=== PATIENT | female | born 1935 | race Caucasian/White ===

== ENCOUNTER → 2016-10-20 | Outpatient (CLI) | payer BC ==
[~2016-10-20] MED LIST: ACET-1257 PO; ALBUAER19 INH; AMOX400S2 PO; AMOX875T PO; ASCO1CAP3 PO; CALC500C3 PO; CALCTAB5 PO; CHOL1000 PO; CMD25 PO; CMD5 PO; LPR25 PO; MULT-506 PO; TRIA0.022 TOP; ZNTT/150 PO
[2016-10-20 13:38] LABS: BASO % 0.3 %; BASO ABS # 0.02 K/uL (0-0.2); COMPLETE YES; EOS % 1.4 %; HEMATOCRIT 37.9 % (37-47); IG% 0.2 %; LYMPH % 31.8 %; LYMPH ABS # 1.98 K/uL (1.2-3.4); MEAN CELL VOLUME 95.5 fL (80-100); MEAN CORPUSCULAR HEMOGLOBIN 31.2 pg (25-34); MEAN CORPUSCULAR HGB CONC 32.7 g/dl (32-36); MEAN PLATELET VOLUME 10.4 fL (7.4-10.4); MONO % 7.4 %; NEUT % 58.9 %; PLATELET COUNT 317 K/uL (130-400); RED BLOOD COUNT 3.97 M/uL (4.2-5.4); WHITE BLOOD COUNT 6.22 K/uL (4.8-10.8)
[2016-10-20 13:45] LABS: URINE APPEARANCE CLEAR (CLEAR); URINE BILIRUBIN NEG (NEG); URINE COLOR YELLOW; URINE NITRITE NEG (NEG); URINE PH 7.5 (4.5-7.5); URINE SPECIFIC GRAVITY 1.014 (1.000-1.030); UROBILINOGEN NEG (NEG)
[2016-10-20 13:51] LABS: MANUAL MICROSCOPIC REQUIRED? NO; REVIEW REQ? NO
== END | disposition home or self-care (01) ==
LOC: C.LABBC 10:57
PROVIDERS: ATTEND Family Medicine
DX: R10.819 Abdominal tenderness, unspecified site (principal)

== ENCOUNTER 2017-01-21 10:06 | Inpatient (IN) | payer BC, OTHER ==
[~2017-01-21] VITALS: Ht 162.6 cm; Wt 53.0 kg
[~2017-01-21 10:06] MED LIST changes: -AMOX400S2 PO; -AMOX875T PO; -CALC500C3 PO; -ZNTT/150 PO
[2017-01-21] MEDS ORDERED: SODIUM CHLORIDE 0.9% 1000ML 500 ML IV STA (10:25)
[2017-01-21] MEDS ORDERED: LOPERAMIDE HCL 2 MG CAP PO STA (10:25)
[2017-01-21] MEDS ORDERED: SODIUM CHLORIDE 0.9% 1000ML 1,000 ML IV STA (10:25)
[2017-01-21] MEDS ORDERED: ONDANSETRON INJ 2 MG/ML 2 ML VIAL IV STA (10:25)
[2017-01-21] MEDS ORDERED: CMD5 PO (10:35)
[2017-01-21] MEDS ORDERED: CMD25 PO (10:35)
[2017-01-21] MEDS ORDERED: CALC500C3 PO (10:36)
[2017-01-21] MEDS ORDERED: OPTIRAY 320 IV PRN (10:45)
[2017-01-21 10:59] LABS: BASO % 0.2 %; BASO ABS # 0.01 K/uL (0-0.2); COMPLETE YES; EOS % 0.6 %; HEMATOCRIT 42.1 % (37-47); IG% 0.2 %; LYMPH ABS # 0.91 K/uL (1.2-3.4); MEAN CORPUSCULAR HEMOGLOBIN 31.5 pg (25-34); MEAN CORPUSCULAR HGB CONC 33.5 g/dl (32-36); PLATELET COUNT 311 K/uL (130-400); RED BLOOD COUNT 4.48 M/uL (4.2-5.4); WHITE BLOOD COUNT 6.49 K/uL (4.8-10.8)
--- NOTE | 2017-01-21 11:06 | EMERGENCY ROOM VISIT NOTE ---
History Report prepared by Lawrence: Jason Watson Under the Supervision of: Dr. Marco Antonio Granado M.D. First contact with patient: 10:19 Chief Complaint: ABDOMINAL PAIN Stated Complaint: ABDOMINAL PAIN,NAUSEA,VOMITING,DIARRHEA History of Present Illness The patient is a 81 year old female who presents to the Emergency Room with complaints of constant abdominal pain beginning 1 week ago. She states that her pain began with intermittent cramps, but has become constant. She also complains of vomiting. The patient's most recent vomiting occurred last week. She also notes that she had some "watery" diarrhea this week as well. She denies any fevers, urinary symptoms, or bloody stool. The patient notes that she was seen by her PCP for her symptoms 1 week ago and was told that she likely had a stomach bug. She notes that her currently has similar symptoms. She denies feeling dehydrated. She is on Coumadin due to a history of DVT. Source of History: patient Onset: 1 week ago Position: abdomen Quality: cramping Timing: constant Associated Symptoms: + vomiting, + diarrhea, No fevers, No hematochezia, No urinary symptoms Review of Systems See HPI for pertinent positives & negatives. A total of 10 systems reviewed and were otherwise negative. Past Medical & Surgical Medical Problems: (1) DVT (deep venous thrombosis) (2) Hip fracture, left (3) HTN (hypertension) (4) Stress-induced cardiomyopathy Surgical Problems: (1) History of appendectomy (2) History of cataract surgery Family History No pertinent family history stated. Social History Smoking Status: Never Smoker Marital Status: Occupation Status: retired Current/Historical Medications Scheduled Ascorbic Acid (Vitamin C), 500 MG PO QAM Calcium (Caltrate), 600 MG PO BID Calcium Carbonate (Tums), 500 MG PO DIRECTED Cholecalciferol (Vitamin D3), 1 TAB PO QAM Metoprolol Tartrate (Lopressor), 25 MG PO BID Multivitamin (Multivitamin), 1 TAB PO QAM Ranitidine (Zantac), 150 MG PO BID Triamcinolone Acetonide (Topic (Triamcinolone Acet 0.025%), 1 DOSE TOP PRN Warfarin Sod (Coumadin), 2.5 MG PO 5XWK Warfarin Sod (Coumadin), 5 MG PO 2XWK Allergies Coded Allergies: Sulfa Antibiotics (Verified Allergy, Intermediate, HIVES, RASH, 01/21/17) Adhesives (Unverified Allergy, Unknown, REDNESS SKIN WITH TAPE, 01/21/17) Latex (Unverified Allergy, Unknown, PRURITUS, 01/21/17) PER RECORDS Aspirin (Verified Adverse Reaction, Mild, NAUSEA, 01/21/17) Codeine (Verified Adverse Reaction, Mild, NAUSEA, 01/21/17) Ibuprofen (Verified Adverse Reaction, Mild, NAUSEA, 01/21/17) Oxycodone (Verified Adverse Reaction, Mild, NAUSEA, 01/21/17) Morphine and Related (Unverified Adverse Reaction, Unknown, NAUSEA, 01/21/17 ) PER RECORDS Physical Exam Vital Signs Date Time Temp Pulse Resp B/P (MAP) Pulse Ox O2 Delivery O2 Flow Rate FiO2 01/21/17 17:18 82 20 154/72 98 Room Air 01/21/17 15:36 90 20 157/88 91 Room Air 01/21/17 14:18 76 20 161/79 100 Room Air 01/21/17 13:24 84 20 156/82 93 Room Air 01/21/17 13:04 85 01/21/17 12:32 86 16 160/78 96 Room Air 01/21/17 11:14 78 16 163/80 98 Room Air 01/21/17 10:23 88 01/21/17 10:17 36.7 92 16 190/100 96 Room Air Physical Exam GENERAL: Patient is in no acute distress. HEENT: No acute trauma, normocephalic atraumatic, mucous membranes moist, no nasal congestion, no scleral icterus. NECK: No stridor, no adenopathy, no meningismus, trachea is midline. LUNGS: Clear to auscultation bilaterally, no wheeze, no rhonchi, breath sounds equal. HEART: Without murmurs gallops or rubs, regular rate and rhythm. ABDOMEN: Soft, mildly diffusely tender, bowel sounds positive, no hernias, no peritonitis. EXTREMITIES: No cyanosis or edema, full range of motion of all the joints without pain or difficulty, no signs for acute trauma. NEUROLOGIC: Oriented x 3, no acute motor or sensory deficits, no focal weakness. SKIN: No rash, no jaundice, no diaphoresis. Medical Decision & Procedures ER Provider Diagnostic Interpretation: CT results as stated below per my review and radiologist interpretation: ABDOMEN AND PELVIS CT WITH IV CONTRAST FINDINGS: Minimal nonspecific interstitial change medial aspect right base. Lung bases otherwise are clear. Several hepatic cysts which have been described previously. Liver otherwise appears uniform. Small hiatal hernia. Spleen is unremarkable. Pancreas shows mild fatty replacement. The kidneys enhance uniformly. 5 mm nonobstructing lower pole right renal calcification. No evidence renal hydronephrosis. There are several loops of small bowel which are somewhat distended and fluid-filled. No evidence for an obstructing lesion is identified. Appearance suggests a nonspecific enteritis or small bowel inflammatory process. There is no evidence for abscess or collection. Bladder is midline. Findings of chronic sigmoid diverticulosis. At the mid to lower sigmoid components are findings suggesting a mild superimposed acute diverticulitis type component. There is again no evidence for abscess or collection. There is moderate pericolonic infiltrative change of the lower sigmoid components. There are several shotty nodes involving the mesentery as well as retroperitoneum. Bulky adenopathy is not appreciated. These presumably are reactive. IMPRESSION: 1. Mild acute sigmoid diverticulitis superimposed upon chronic diverticular change. 2. Reactive ileus versus nonspecific enteritis with a secondary small bowel ileus. 3. Multiple hepatic cysts. 5. Nonobstructing right renal calcification. 6. Minimal interstitial change right base. Electronically signed by: Dave Schultz M.D. Laboratory Results 01/21/17 10:42 Red Blood Count 4.48, Mean Corpuscular Volume 94.0, Mean Corpuscular Hemoglobin 31.5, Mean Corpuscular Hemoglobin Concent 33.5, Mean Platelet Volume 10.0, Neutrophils (%) (Auto) 77.0, Lymphocytes (%) (Auto) 14.0, Monocytes (%) (Auto) 8.0, Eosinophils (%) (Auto) 0.6, Basophils (%) (Auto) 0.2, Neutrophils # (Auto) 5.00, Lymphocytes # (Auto) 0.91, Monocytes # (Auto) 0.52, Eosinophils # (Auto) 0.04, Basophils # (Auto) 0.01 01/21/17 10:42 Test 01/21/17 00:00 01/21/17 10:42 Urine Color YELLOW Urine Appearance CLEAR (CLEAR) Urine pH 5.0 (4.5-7.5) Urine Specific [place] 1.023 (1.000-1.030) Urine Protein NEG (NEG) Urine Glucose (UA) NEG (NEG) Urine Ketones 2+ (NEG) Urine Occult Blood TRACE (NEG) Urine Nitrite NEG (NEG) Urine Bilirubin NEG (NEG) Urine Urobilinogen NEG (NEG) Urine Leukocyte Esterase NEG (NEG) Urine WBC (Auto) 1-5 /hpf (0-5) Urine RBC (Auto) 0-4 /hpf (0-4) Urine Hyaline Casts (Auto) 1-5 /lpf (0-5) Urine Epithelial Cells (Auto) 10-20 /lpf (0-5) Urine Bacteria (Auto) NEG (NEG) White Blood Count 6.49 K/uL (4.8-10.8) Red Blood Count 4.48 M/uL (4.2-5.4) Hemoglobin 14.1 g/dL (12.0-16.0) Hematocrit 42.1 % (37-47) Mean Corpuscular Volume 94.0 fL (80-100) Mean Corpuscular Hemoglobin 31.5 pg (25-34) Mean Corpuscular Hemoglobin Concent 33.5 g/dl (32-36) Platelet Count 311 K/uL (130-400) Mean Platelet Volume 10.0 fL (7.4-10.4) Neutrophils (%) (Auto) 77.0 % Lymphocytes (%) (Auto) 14.0 % Monocytes (%) (Auto) 8.0 % Eosinophils (%) (Auto) 0.6 % Basophils (%) (Auto) 0.2 % Neutrophils # (Auto) 5.00 K/uL (1.4-6.5) Lymphocytes # (Auto) 0.91 K/uL (1.2-3.4) Monocytes # (Auto) 0.52 K/uL (0.11-0.59) Eosinophils # (Auto) 0.04 K/uL (0-0.5) Basophils # (Auto) 0.01 K/uL (0-0.2) RDW Standard Deviation 46.5 fL (36.4-46.3) RDW Coefficient of Variation 13.5 % (11.5-14.5) Immature Granulocyte % (Auto) 0.2 % Immature Granulocyte # (Auto) 0.01 K/uL (0.00-0.02) Prothrombin Time 49.5 SECONDS (9.0-12.0) Prothromb Time International Ratio 4.4 (0.9-1.1) Activated Partial Thromboplast Time 45.0 SECONDS (21.0-31.0) Partial Thromboplastin Ratio 1.7 Anion Gap 7.0 mmol/L (3-11) Est Creatinine Clear Calc Drug Dose 56.6 ml/min Estimated GFR () 96.1 Estimated GFR (Non- 82.9 BUN/Creatinine Ratio 26.8 (10-20) Lactic Acid Level 1.1 mmol/L (0.4-2.0) Calcium Level 8.8 mg/dl (8.5-10.1) Magnesium Level 1.8 mg/dl (1.8-2.4) Total Bilirubin 0.8 mg/dl (0.2-1) Aspartate Amino Transf (AST/SGOT) 25 U/L (15-37) Alanine Aminotransferase (ALT/SGPT) 36 U/L (12-78) Alkaline Phosphatase 56 U/L (45-117) Total Protein 6.6 gm/dl (6.4-8.2) Albumin 3.3 gm/dl (3.4-5.0) Globulin 3.3 gm/dl (2.5-4.0) Albumin/Globulin Ratio 1.0 (0.9-2) Lipase 141 U/L (73-393) Laboratory results reviewed by me. Medications Administered Medications (Trade) Dose Ordered Sig/Shailesh Route Start Time Stop Time Status Last Admin Dose Admin Sodium Chloride 500 ml @ 999 mls/hr Q31M STAT IV 01/21/17 10:25 01/21/17 10:55 DC 01/21/17 10:25 999 MLS/HR Ondansetron HCl (Zofran Inj) 4 mg NOW STAT IV 01/21/17 10:25 01/21/17 10:28 DC 01/21/17 11:00 4 MG Sodium Chloride 1,000 ml @ 125 mls/hr Q8H STAT IV 01/21/17 10:25 01/21/17 18:24 01/21/17 10:25 125 MLS/HR Loperamide HCl (Imodium Cap) 2 mg NOW STAT PO 01/21/17 10:25 01/21/17 10:28 DC 01/21/17 11:00 2 MG Amoxicillin/ Clavulanate Potassium (Augmentin Tab) 875 mg ONE ONCE PO 01/21/17 13:15 01/21/17 13:17 DC 01/21/17 13:23 875 MG Ondansetron HCl (Zofran Odt) 4 mg STK-MED ONCE .ROUTE 01/21/17 14:27 01/21/17 14:28 DC 01/21/17 14:33 4 MG Ciprofloxacin/ Dextrose (Cipro / D5W) 400 mg NOW STAT IV 01/21/17 15:23 01/21/17 15:25 DC 01/21/17 16:33 400 MG Metronidazole (Flagyl / Nss) 500 mg NOW STAT IV 01/21/17 15:23 01/21/17 15:25 DC 01/21/17 15:36 500 MG Prochlorperazine Edisylate 5 mg/ Syringe 5 ml @ 5 mls/min NOW STAT IV 01/21/17 16:02 01/21/17 16:06 DC 01/21/17 16:02 5 MLS/MIN ED Course 1020: The patient was evaluated in room C4B. A complete history and physical exam was performed. 1025: Ordered Imodium Cap 2 mg PO, Sodium Chloride 1000 ml @ 125 mls/hr IV, Zofran Inj 4 mg IV, Sodium Chloride 500 ml @ 999 mls/hr IV. 1308: I reassessed the patient. She is feeling better. 1315: Ordered Augmentin Tab 875 mg PO. 1405: Reevaluated the patient. She feels very nauseous. 1427: Ordered Zofran Odt 4 mg PO. 1520: Upon reexamination the patient is resting comfortably. She still feels very nauseous. I discussed results and treatment plan with the patient. She verbalizes agreement and understanding. The patient will be evaluated for further management. 1523: Ordered Flagyl/NSS 500 mg IV, Cipro/D5w 400 mg IV. Medical Decision The patient is a 81 year old female who presents to the ED with complaints of abdominal pain. Differential diagnoses considered include but are not limited to; diverticulitis/colitis, dehydration, electrolyte imbalance, viral illness, foodborne illness, pancreatitis, UTI, and bacterial intestinal infection. Blood Pressure Screening: Patient was found to have an elevated blood pressure and was referred to their primary doctor for recheck and further treatment. Medication Reconciliation: I attest that I have personally reviewed the patient' s current medication list. There is no leukocytosis or concerning anemia. No significant electrolyte abnormality, kidney failure, hepatitis or pancreatitis. Lactic acid level is not elevated making bowel ischemia less likely. The patient has not been able to provide a stool sample for testing. Urinalysis does not show infection. Abdominal and pelvis CT does show diverticulitis, no abscess. The patient received IV saline, oral Augmentin, IV Zofran and oral Imodium. She was doing well. The plan was for discharge home on oral Augmentin. The patient began to feel nauseated, she required oral Zofran, this did not help , she could not tolerate oral intake. With her findings, with the nausea and reported vomiting, I did not think she would do well with discharge, she is being brought into the hospital for IV antibiotic therapy. She was given a dose of IV Cipro and IV Flagyl here in the emergency room. I did speak to the patient and to case management. The on-call hospitalist was consulted. Consults Time Called: 1525 Consulting Physician: Sybil Castorena Returned Call: [phone] Discussed the patient's case. The patient will be evaluated for further management. Impression Primary Impression: Diverticulitis Additional Impressions: Vomiting Diarrhea Scribe Attestation The scribe's documentation has been prepared under my direction and personally reviewed by me in its entirety. I confirm that the note above accurately reflects all work, treatment, procedures, and medical decision making performed by me. Departure Information Dispostion Being Evaluated By Hospitalist Referrals Moustapha Hummel D.O. (PCP) Forms HOME CARE DOCUMENTATION FORM, IMPORTANT VISIT INFORMATION Patient Instructions My [facility] Problem Qualifiers
[2017-01-21 11:15] LABS: PARTIAL THROMBOPLASTIN RATIO 1.7; PROTHROMBIN TIME (PATIENT) 49.5 SECONDS (9.0-12.0)
[2017-01-21 11:18] LABS: BUN/CREATININE RATIO 26.8 (10-20); CALCIUM 8.8 mg/dl (8.5-10.1); CREATININE 0.63 mg/dl (0.60-1.20); INR 4.4 (0.9-1.1); POTASSIUM 3.7 mmol/L (3.5-5.1)
--- NOTE | 2017-01-21 12:41 | DIAGNOSTIC IMAGING REPORT ---
ABDOMEN AND PELVIS CT WITH IV CONTRAST CT DOSE: 492.84 mGycm HISTORY: Pain ABD PAIN, posse dive tic or colitis, IV CONTRAST ONLY TECHNIQUE: Multiaxial CT images of the abdomen and pelvis were performed following the use of intravenous contrast. COMPARISON STUDY: 11/01/2009 FINDINGS: Minimal nonspecific interstitial change medial aspect right base. Lung bases otherwise are clear. Several hepatic cysts which have been described previously. Liver otherwise appears uniform. Small hiatal hernia. Spleen is unremarkable. Pancreas shows mild fatty replacement. The kidneys enhance uniformly. 5 mm nonobstructing lower pole right renal calcification. No evidence renal hydronephrosis. There are several loops of small bowel which are somewhat distended and fluid-filled. No evidence for an obstructing lesion is identified. Appearance suggests a nonspecific enteritis or small bowel inflammatory process. There is no evidence for abscess or collection. Bladder is midline. Findings of chronic sigmoid diverticulosis. At the mid to lower sigmoid components are findings suggesting a mild superimposed acute diverticulitis type component. There is again no evidence for abscess or collection. There is moderate pericolonic infiltrative change of the lower sigmoid components. There are several shotty nodes involving the mesentery as well as retroperitoneum. Bulky adenopathy is not appreciated. These presumably are reactive. IMPRESSION: 1. Mild acute sigmoid diverticulitis superimposed upon chronic diverticular change. 2. Reactive ileus versus nonspecific enteritis with a secondary small bowel ileus. 3. Multiple hepatic cysts. 5. Nonobstructing right renal calcification. 6. Minimal interstitial change right base. Electronically signed by: Dave Schultz M.D. 01/21/2017 12:40 PM Dictated Date/Time: 01/21/2017 12:33 PM
[2017-01-21 12:57] LABS: URINE APPEARANCE CLEAR (CLEAR); URINE BILIRUBIN NEG (NEG); URINE COLOR YELLOW; URINE NITRITE NEG (NEG); URINE SPECIFIC GRAVITY 1.023 (1.000-1.030); UROBILINOGEN NEG (NEG); ZZUR CULT IF INDIC CLEAN CATCH NO
[2017-01-21 12:59] LABS: MANUAL MICROSCOPIC REQUIRED? NO; REVIEW REQ? NO
[2017-01-21] MEDS ORDERED: AMOXICILLIN/CLAVULANATE TAB 875 MG TAB PO ONE (13:15)
[2017-01-21] MEDS ORDERED: AMOX875T PO (14:12)
[2017-01-21] MEDS ORDERED: ONDANSETRON 4MG OD TAB ONE ×2 (14:27→14:31)
[2017-01-21] MEDS ORDERED: METRONIDAZOLE 500MG / 100ML NSS IV STA (15:23)
[2017-01-21] MEDS ORDERED: CIPROFLOXACIN 400MG / 200ML D5W IV STA (15:23)
[2017-01-21] MEDS ORDERED: PROMETHAZINE HCL INJ 12.5 MG in SODIUM CHLORIDE 0.9% 50ML 50 ML IV PRN (16:00)
[2017-01-21] MEDS ORDERED: PROCHLORPERAZINE INJ 5 MG in SYRINGE 4 ML IV STA (16:02)
[2017-01-21] MEDS ORDERED: PROCHLORPERAZINE 5 MG/ML 2 ML VIAL ONE (16:02)
[2017-01-21] MEDS ORDERED: ACETAMINOPHEN 325 MG TAB PO PRN (16:15)
[2017-01-21] MEDS ORDERED: ONDANSETRON INJ 2 MG/ML 2 ML VIAL IV PRN (16:15)
[2017-01-21] MEDS ORDERED: ZNTT/150 PO (16:16)
[2017-01-21 17:09] LABS: MAGNESIUM 1.8 mg/dl (1.8-2.4)
--- NOTE | 2017-01-21 17:17 | History and Physical ---
History & Physical Date & Time of Service: Jan 21, 2017 ~ 16:00 Chief Complaint: Abdominal Pain,Nausea,Vomiting,Diarrhea Primary Care Physician: Moustapha Hummel D.OTalya History of Present Illness 81 year old female who presents to the ER with abdominal pain, nausea, vomiting , and diarrhea. Patient reports she has been sick for the past 10 days. She reports abdominal pain was initially in the epigastric region and then became more generalized. She reports multiple episodes of vomiting and diarrhea. She denies hematemesis, coffee ground emesis, BRBPR, or dark tarry stools. She denies fever and chills. No lightheadedness, dizziness, diaphoresis, or syncopal events. She denies chest pain and shortness of breath. No urinary symptoms. In the ER, patient is having poor PO tolerance. She had a few episodes of vomiting during my exam. Emesis was bilious in nature with some undigested food. CT abd/eplvis is showing mild acute sigmoid diverticulitis. She was given Augmentin however had vomiting after. She was then given IV Cipro and Flagyl. She was also treated with IVF, Imodium, and Zofran. Vitals are stable. Past Medical/Surgical History Medical Problems: (1) DVT (deep venous thrombosis) Status: Chronic (2) Hip fracture, left Permanent Comment: s/p repair Status: Chronic (3) HTN (hypertension) Status: Chronic (4) Stress-induced cardiomyopathy Status: Chronic Surgical Problems: (1) History of appendectomy Status: Chronic (2) History of cataract surgery Status: Chronic Family History non contributory due to patient's advanced age Social History Smoking Status: Never Smoker Alcohol Use: none Marital Status: Immunizations History of Influenza Vaccine: Yes Influenza Vaccine Date: May 31, 2016 History of Tetanus Vaccine?: Yes Tetanus Immunization Date: Oct 18, 2012 History of Pneumococcal: Yes Pneumococcal Date: Apr 28, 2015 Multi-Drug Resistant Organisms History of MDRO: No Allergies Coded Allergies: Sulfa Antibiotics (Verified Allergy, Intermediate, HIVES, RASH, 01/21/17) Adhesives (Unverified Allergy, Unknown, REDNESS SKIN WITH TAPE, 01/21/17) Latex (Unverified Allergy, Unknown, PRURITUS, 01/21/17) PER RECORDS Aspirin (Verified Adverse Reaction, Mild, NAUSEA, 01/21/17) Codeine (Verified Adverse Reaction, Mild, NAUSEA, 01/21/17) Ibuprofen (Verified Adverse Reaction, Mild, NAUSEA, 01/21/17) Oxycodone (Verified Adverse Reaction, Mild, NAUSEA, 01/21/17) Morphine and Related (Unverified Adverse Reaction, Unknown, NAUSEA, 01/21/17 ) PER RECORDS Home Medications Scheduled Ascorbic Acid (Vitamin C), 500 MG PO QAM Calcium (Caltrate), 600 MG PO BID Calcium Carbonate (Tums), 500 MG PO DIRECTED Cholecalciferol (Vitamin D3), 1 TAB PO QAM Metoprolol Tartrate (Lopressor), 25 MG PO BID Multivitamin (Multivitamin), 1 TAB PO QAM Ranitidine (Zantac), 150 MG PO BID Triamcinolone Acetonide (Topic (Triamcinolone Acet 0.025%), 1 DOSE TOP PRN Warfarin Sod (Coumadin), 2.5 MG PO 5XWK Warfarin Sod (Coumadin), 5 MG PO 2XWK Review of Systems ROS per HPI, all other systems reviewed and negative Physical Exam Vital Signs Date Time Temp Pulse Resp B/P (MAP) Pulse Ox O2 Delivery O2 Flow Rate FiO2 01/21/17 15:36 90 20 157/88 91 Room Air 01/21/17 14:18 76 20 161/79 100 Room Air 01/21/17 13:24 84 20 156/82 93 Room Air 01/21/17 13:04 85 01/21/17 12:32 86 16 160/78 96 Room Air 01/21/17 11:14 78 16 163/80 98 Room Air 01/21/17 10:23 88 01/21/17 10:17 36.7 92 16 190/100 96 Room Air General Appearance: + mild distress (vomiting during exam) Head: normocephalic Eyes: normal inspection ENT: hearing grossly normal Neck: supple, no JVD Respiratory/Chest: lungs clear, normal breath sounds, no respiratory distress Cardiovascular: regular rate, rhythm, no edema, normal peripheral pulses Abdomen/GI: normal bowel sounds, soft, + tenderness (generalized, more pronounced in epigastric area) Extremities/Musculoskelatal: normal inspection, no calf tenderness Neurologic/Psych: no motor/sensory deficits, alert, normal mood/affect, oriented x 3 Skin: normal color, warm/dry Diagnostics Laboratory Results Results Past 24 Hours Test 7/7/17 00:00 01/21/17 10:42 Range/Units Urine Color YELLOW Urine Appearance CLEAR CLEAR Urine pH 5.0 4.5-7.5 Urine Specific [place] 1.023 1.000-1.030 Urine Protein NEG NEG Urine Glucose (UA) NEG NEG Urine Ketones 2+ NEG Urine Occult Blood TRACE NEG Urine Nitrite NEG NEG Urine Bilirubin NEG NEG Urine Urobilinogen NEG NEG Urine Leukocyte Esterase NEG NEG Urine WBC (Auto) 1-5 0-5 /hpf Urine RBC (Auto) 0-4 0-4 /hpf Urine Hyaline Casts (Auto) 1-5 0-5 /lpf Urine Epithelial Cells (Auto) 10-20 0-5 /lpf Urine Bacteria (Auto) NEG NEG White Blood Count 6.49 4.8-10.8 K/uL Red Blood Count 4.48 4.2-5.4 M/uL Hemoglobin 14.1 12.0-16.0 g/dL Hematocrit 42.1 37-47 % Mean Corpuscular Volume 94.0 80-100 fL Mean Corpuscular Hemoglobin 31.5 25-34 pg Mean Corpuscular Hemoglobin Concent 33.5 32-36 g/dl Platelet Count 311 130-400 K/uL Mean Platelet Volume 10.0 7.4-10.4 fL Neutrophils (%) (Auto) 77.0 % Lymphocytes (%) (Auto) 14.0 % Monocytes (%) (Auto) 8.0 % Eosinophils (%) (Auto) 0.6 % Basophils (%) (Auto) 0.2 % Neutrophils # (Auto) 5.00 1.4-6.5 K/uL Lymphocytes # (Auto) 0.91 1.2-3.4 K/uL Monocytes # (Auto) 0.52 0.11-0.59 K/uL Eosinophils # (Auto) 0.04 0-0.5 K/uL Basophils # (Auto) 0.01 0-0.2 K/uL RDW Standard Deviation 46.5 36.4-46.3 fL RDW Coefficient of Variation 13.5 11.5-14.5 % Immature Granulocyte % (Auto) 0.2 % Immature Granulocyte # (Auto) 0.01 0.00-0.02 K/uL Prothrombin Time 49.5 9.0-12.0 SECONDS Prothromb Time International Ratio 4.4 0.9-1.1 Activated Partial Thromboplast Time 45.0 21.0-31.0 SECONDS Partial Thromboplastin Ratio 1.7 Sodium Level 144 136-145 mmol/L Potassium Level 3.7 3.5-5.1 mmol/L Chloride Level 109 98-107 mmol/L Carbon Dioxide Level 28 21-32 mmol/L Anion Gap 7.0 3-11 mmol/L Blood Urea Nitrogen 17 7-18 mg/dl Creatinine 0.63 0.60-1.20 mg/dl Est Creatinine Clear Calc Drug Dose 56.6 ml/min Estimated GFR () 96.1 Estimated GFR (Non- 82.9 BUN/Creatinine Ratio 26.8 10-20 Random Glucose 82 70-99 mg/dl Lactic Acid Level 1.1 0.4-2.0 mmol/L Calcium Level 8.8 8.5-10.1 mg/dl Total Bilirubin 0.8 0.2-1 mg/dl Aspartate Amino Transf (AST/SGOT) 25 15-37 U/L Alanine Aminotransferase (ALT/SGPT) 36 12-78 U/L Alkaline Phosphatase 56 45-117 U/L Total Protein 6.6 6.4-8.2 gm/dl Albumin 3.3 3.4-5.0 gm/dl Globulin 3.3 2.5-4.0 gm/dl Albumin/Globulin Ratio 1.0 0.9-2 Lipase 141 73-393 U/L Diagnostic Radiology CT ABD/PLEVIS IMPRESSION: 1. Mild acute sigmoid diverticulitis superimposed upon chronic diverticular change. 2. Reactive ileus versus nonspecific enteritis with a secondary small bowel ileus. 3. Multiple hepatic cysts. 5. Nonobstructing right renal calcification. 6. Minimal interstitial change right base. Impression Assessment and Plan ACUTE SIGMOID DIVERTICULITIS - admit to med/surg - patient presenting with abdominal pain, nausea, vomiting, and diarrhea x 10 days; in the ER, CT showing mild acute sigmoid diverticulitis - labs unremarkable, no signs of sepsis - poor PO tolerance in the ED - s/p Cipro and Flagyl, will continue with - supportive care with IVF, IV PPI, and antiemetics - stool studies - clear liquid diet - noted cscope 2009 - sigmoid diverticulosis HTN - BP slightly elevated - likely due to stress from vomiting - continue metoprolol, make adjustments as needed HX DVT - on Coumadin, INR 4.4 - no signs of bleeding - hold Coumadin tonight, check INR daily DVT PROPHYLAXIS - on Coumadin with INR > 2.0 CODE STATUS - Patient is a DNR as per my discussion with her. DISPO - In my clinical judgment this beneficiary meets acute admission criteria, established by [facility], that includes being hospitalized through two midnights. Attending Note: Patient is an 81 yr female comes for evaluation of abdominal pain, nausea, vomiting and an episode of diarrhea. Denies any bleeding issues. States having diverticulitis many years ago. CT abd is suggestive of acute sigmoid diverticulitis. PCP prescribed PO antibiotics which she could not tolerate secondary to nausea, vomiting. Physical Exam: Vitals signs as noted above General Appearance:Moderately built and nourished, no apparent distress Head: normocephalic, Atraumatic Eyes: normal inspection, EOMI, PERRL Neck: supple, Trachea midline Respiratory/Chest: Normal breath sounds, CTA Cardiovascular: S1, S2, No murmur Abdomen/GI:Soft, diffusely tender, Bowel sounds present Extremities/Musculoskelatal:normal inspection, no edema Neurologic/Psych:AAOX3, grossly no focal neurological deficits Skin:normal color,warm Assessment and Plan: Acute sigmoid diverticulitis: H/O appendectomy and previous episode of diverticulitis many years ago IV Fluids, IV antibiotics, Pain control Clear liquid diet Supra therapeutic INR No bleeding issues Hold coumadin I personally reviewed the record. Patient is interviewed and examined at bedside. Patient's care is coordinated with Sybil Elam WEB ARCHITECT. Please refer to the documentation above for details of patient's presentation and for discussion of other issues. VTE Prophylaxis VTE Risk Assessment Done? Y/N: Yes Risk Level: Moderate Given or contraindicated: Warfarin (Coumadin)
[2017-01-21 18:08] VITALS: BP 138/71; PULSE 94; TEMP 36.7; O2SAT 90; Ht 162.6 cm; Wt 53.0 kg
[2017-01-21] MEDS: D5W AND NSS 1,000 ML IV SCH (19:25)
[2017-01-21] MEDS: PANTOprazole INJ 40 MG in SYRINGE 0 ML IV SCH (19:29)
[2017-01-21] MEDS: CALCIUM 600MG + VIT D 400 IU TAB PO SCH (20:32)
[2017-01-21] MEDS: METOPROLOL TARTRATE 25 MG TAB PO SCH (20:32)
[2017-01-21] MEDS: METRONIDAZOLE / NSS 500 MG in PREMIXED NSS 100 ML IV SCH (23:48)
[2017-01-21 23:58] VITALS: BP 90/50; PULSE 64; TEMP 36.9; O2SAT 93
[2017-01-22] MEDS: D5W AND NSS 1,000 ML IV SCH ×3 (04:56→22:17)
[2017-01-22] MEDS: CIPROFLOXACIN / D5W 400 MG in PREMIXED IN D5W 200 ML IV SCH ×2 (04:56→18:14)
[2017-01-22 05:02] VITALS: BP 100/57; PULSE 66
[2017-01-22 06:47] LABS: HEMATOCRIT 35.8 % (37-47); MEAN CELL VOLUME 95.7 fL (80-100); MEAN CORPUSCULAR HEMOGLOBIN 31.3 pg (25-34); MEAN CORPUSCULAR HGB CONC 32.7 g/dl (32-36); PLATELET COUNT 261 K/uL (130-400); RED BLOOD COUNT 3.74 M/uL (4.2-5.4); WHITE BLOOD COUNT 4.32 K/uL (4.8-10.8)
[2017-01-22 07:09] VITALS: BP 109/65; PULSE 65; TEMP 36.9; O2SAT 93
[2017-01-22] MEDS ORDERED: PHYTONADIONE 5 MG TAB PO STA (07:42)
[2017-01-22] MEDS: METRONIDAZOLE / NSS 500 MG in PREMIXED NSS 100 ML IV SCH ×2 (07:53→15:52)
[2017-01-22] MEDS: PANTOprazole INJ 40 MG in SYRINGE 0 ML IV SCH ×2 (07:53→20:41)
[2017-01-22] MEDS: METOPROLOL TARTRATE 25 MG TAB PO SCH ×2 (07:53→20:42)
[2017-01-22] MEDS: ASCORBIC ACID 500 MG TAB PO SCH (07:53)
[2017-01-22] MEDS: MULTIVITAMIN TAB PO SCH (07:53)
[2017-01-22] MEDS: CHOLECALCIFEROL 1000 INTER.UNIT TAB PO SCH (07:53)
[2017-01-22] MEDS: CALCIUM 600MG + VIT D 400 IU TAB PO SCH ×2 (07:54→20:42)
[2017-01-22 08:09] LABS: BUN/CREATININE RATIO 14.7 (10-20); CALCIUM 7.6 mg/dl (8.5-10.1); CREATININE 0.72 mg/dl (0.60-1.20); POTASSIUM 3.5 mmol/L (3.5-5.1)
[2017-01-22 16:12] VITALS: BP 131/79; PULSE 65; TEMP 36.7; O2SAT 93
--- NOTE | 2017-01-22 18:26 | Progress Note ---
Medicine Progress Note Date & Time of Visit: Jan 22, 2017 at 18:22. Subjective Patient denies any new complaints; she has been tolerating clear liquids without difficulty and has not had any abdominal pain, nausea, or vomiting. She continues to have frequent watery diarrhea. Denies any bleeding. Objective Last 8 Hrs Date Time Temp Pulse Resp B/P (MAP) Pulse Ox O2 Delivery O2 Flow Rate FiO2 01/22/17 16:12 36.7 65 18 131/79 (96) 93 Room Air 01/22/17 16:00 Room Air Physical Exam: GENERAL: Patient is in no acute distress. HEENT: No acute trauma, normocephalic, mucous membranes moist, no nasal congestion, no scleral icterus. NECK: No stridor, trachea is midline. LUNGS: Clear to auscultation bilaterally, no wheeze, no rhonchi, breath sounds equal. HEART: Without murmurs gallops or rubs, regular rate and rhythm. ABDOMEN: Soft, nontender, bowel sounds positive EXTREMITIES: No cyanosis or edema NEUROLOGIC: Oriented x 3, no acute motor or sensory deficits, no focal weakness. SKIN: No rash, no jaundice, no diaphoresis. Laboratory Results: Last 24 Hours Test 01/22/17 06:07 White Blood Count 4.32 K/uL Red Blood Count 3.74 M/uL Hemoglobin 11.7 g/dL Hematocrit 35.8 % Mean Corpuscular Volume 95.7 fL Mean Corpuscular Hemoglobin 31.3 pg Mean Corpuscular Hemoglobin Concent 32.7 g/dl RDW Standard Deviation 49.0 fL RDW Coefficient of Variation 13.9 % Platelet Count 261 K/uL Mean Platelet Volume 10.0 fL Prothrombin Time 93.0 SECONDS Prothromb Time International Ratio 8.0 Sodium Level 147 mmol/L Potassium Level 3.5 mmol/L Chloride Level 115 mmol/L Carbon Dioxide Level 27 mmol/L Anion Gap 5.0 mmol/L Blood Urea Nitrogen 11 mg/dl Creatinine 0.72 mg/dl Est Creatinine Clear Calc Drug Dose 49.5 ml/min Estimated GFR () 89.8 Estimated GFR (Non- 77.4 BUN/Creatinine Ratio 14.7 Random Glucose 97 mg/dl Calcium Level 7.6 mg/dl Assessment & Plan ACUTE SIGMOID DIVERTICULITIS: -with prior episodes of diverticulitis -presented this time with abdominal pain, nausea, vomiting, and diarrhea x 10 days -CT abd/pelvis: mild acute sigmoid diverticulitis -no signs of sepsis -did not tolerate PO abx in the ED -on Cipro and Flagyl IV day #2 -continue with IV fluids, IV PPI, and antiemetics -stool culture pending, stool for c diff negative -on clear liquid diet -last colonoscopy in 2009 showed sigmoid diverticulosis -still with significant diarrhea -start lactobacillus HTN: -continue metoprolol, adjust as needed Prior DVT: -on Coumadin, INR 4.4--> 8 today despite holding coumadin yesterday -no signs of bleeding -continue to hold Coumadin -check INR daily -one dose oral vitamin K given DVT PROPHYLAXIS: -on Coumadin Current Inpatient Medications: Current Inpatient Medications Medications (Trade) Dose Ordered Sig/Shailesh Route Start Time Stop Time Status Last Admin Dose Admin Ioversol (Optiray 320) 111 ml UD PRN IV 01/21/17 10:45 01/25/17 10:44 Promethazine HCl 12.5 mg/Sodium Chloride 50.5 ml @ 204 mls/hr Q6H PRN IV 01/21/17 16:00 02/20/17 15:59 Acetaminophen (Tylenol Tab) 650 mg Q4H PRN PO 01/21/17 16:15 02/20/17 16:14 Ondansetron HCl (Zofran Inj) 4 mg Q6H PRN IV 01/21/17 16:15 02/20/17 16:14 Dextrose/Sodium Chloride 1,000 ml @ 100 mls/hr Q10H IV 01/21/17 16:15 02/20/17 16:14 01/22/17 18:13 100 MLS/HR Ciprofloxacin/ Dextrose 400 mg/ Prmx 200 ml @ 100 mls/hr Q12H IV 01/22/17 05:00 01/31/17 23:59 01/22/17 18:14 100 MLS/HR Metronidazole 500 mg/Prmx 100 ml @ 100 mls/hr Q8H IV 01/22/17 00:00 01/31/17 23:59 01/22/17 15:52 100 MLS/HR Pantoprazole Sodium 40 mg/ Syringe 10 ml @ 5 mls/min DAILY@ IV 01/21/17 19:00 02/20/17 18:59 01/22/17 07:53 5 MLS/MIN Cholecalciferol (Vitamin D Tab) 1,000 inter.unit QAM PO 01/22/17 09:00 02/21/17 08:59 01/22/17 07:53 1,000 INTER.UNIT Metoprolol Tartrate (Lopressor Tab) 25 mg BID PO 01/21/17 21:00 02/20/17 20:59 01/22/17 07:53 25 MG Multivitamins (Multivitamin Tab) 1 tab QAM PO 01/22/17 09:00 02/21/17 08:59 01/22/17 07:53 1 TAB Ascorbic Acid (Vitamin C Tab) 500 mg QAM PO 01/22/17 09:00 02/21/17 08:59 01/22/17 07:53 500 MG Calcium/Vitamin D (Caltrate Plus Tab) 1 tab BID PO 01/21/17 21:00 02/20/17 20:59 01/22/17 07:54 1 TAB
[2017-01-22 19:38] VITALS: BP 166/85; PULSE 78; TEMP 36.8; O2SAT 96
[2017-01-22] MEDS ORDERED: DiphenhydrAMINE INJ 50 MG in SYRINGE 0 ML IV ONE (20:30)
[2017-01-22 20:38] VITALS: BP 177/91; PULSE 81
[2017-01-22 22:39] VITALS: BP 173/80; PULSE 61; TEMP 36.8; O2SAT 92
[2017-01-23 01:50] VITALS: BP 147/73
[2017-01-23] MEDS: AMPICILLIN/SULBACTAM SOD INJ 1,500 MG in SODIUM CHLORIDE 0.9% 100ML 100 ML IV SCH ×4 (04:04→22:08)
[2017-01-23] MEDS: ASCORBIC ACID 500 MG TAB PO SCH (07:41)
[2017-01-23] MEDS: METOPROLOL TARTRATE 25 MG TAB PO SCH ×2 (07:41→20:54)
[2017-01-23] MEDS: MULTIVITAMIN TAB PO SCH (07:41)
[2017-01-23] MEDS: CHOLECALCIFEROL 1000 INTER.UNIT TAB PO SCH (07:41)
[2017-01-23] MEDS: CALCIUM 600MG + VIT D 400 IU TAB PO SCH ×2 (07:42→20:54)
[2017-01-23] MEDS: LACTOBACILLUS ACIDOPHILUS (FLORANEX) TAB PO SCH ×3 (07:42→16:34)
[2017-01-23] MEDS: PANTOprazole INJ 40 MG in SYRINGE 0 ML IV SCH ×2 (07:47→20:54)
[2017-01-23 08:00] VITALS: BP 144/64; PULSE 68; TEMP 37.1; O2SAT 95
[2017-01-23 08:57] LABS: HEMATOCRIT 36.4 % (37-47); MEAN CELL VOLUME 94.5 fL (80-100); MEAN CORPUSCULAR HEMOGLOBIN 31.7 pg (25-34); MEAN CORPUSCULAR HGB CONC 33.5 g/dl (32-36); MEAN PLATELET VOLUME 9.6 fL (7.4-10.4); PLATELET COUNT 275 K/uL (130-400); RED BLOOD COUNT 3.85 M/uL (4.2-5.4); WHITE BLOOD COUNT 6.61 K/uL (4.8-10.8)
[2017-01-23] MEDS: D5W AND NSS 1,000 ML IV SCH ×2 (09:00→18:24)
[2017-01-23 09:10] LABS: PROTHROMBIN TIME (PATIENT) 49.9 SECONDS (9.0-12.0)
[2017-01-23 09:13] LABS: INR 4.4 (0.9-1.1)
[2017-01-23 09:35] LABS: BUN/CREATININE RATIO 7.8 (10-20); CALCIUM 7.8 mg/dl (8.5-10.1); CREATININE 0.77 mg/dl (0.60-1.20); POTASSIUM 3.2 mmol/L (3.5-5.1)
[2017-01-23 10:01] VITALS: BP 159/80; PULSE 60; O2SAT 96
[2017-01-23 16:00] VITALS: BP 159/74; PULSE 61; TEMP 36.9; O2SAT 94
--- NOTE | 2017-01-23 18:59 | Progress Note ---
Medicine Progress Note Date & Time of Visit: Jan 23, 2017 at 18:59. 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 Today she feels much better and feels the diarrhea is less frequent. She would like her diet to be advanced. No other events noted. No other complaints. Denies any abdominal pain or N/V. Objective Last 8 Hrs Date Time Temp Pulse Resp B/P (MAP) Pulse Ox O2 Delivery O2 Flow Rate FiO2 01/23/17 16:00 Room Air 01/23/17 16:00 36.9 61 18 159/74 (102) 94 Room Air Physical Exam: GENERAL: Patient is in no acute distress. HEENT: No acute trauma, normocephalic, mucous membranes moist, no nasal congestion, no scleral icterus. NECK: No stridor, trachea is midline. LUNGS: Clear to auscultation bilaterally, no wheeze, no rhonchi, breath sounds equal. HEART: Without murmurs gallops or rubs, regular rate and rhythm. ABDOMEN: Soft, nontender, bowel sounds positive EXTREMITIES: No cyanosis or edema NEUROLOGIC: Oriented x 3, no acute motor or sensory deficits, no focal weakness. SKIN: No rash, no jaundice, no diaphoresis. Laboratory Results: Last 24 Hours Test 01/23/17 08:45 White Blood Count 6.61 K/uL Red Blood Count 3.85 M/uL Hemoglobin 12.2 g/dL Hematocrit 36.4 % Mean Corpuscular Volume 94.5 fL Mean Corpuscular Hemoglobin 31.7 pg Mean Corpuscular Hemoglobin Concent 33.5 g/dl RDW Standard Deviation 48.1 fL RDW Coefficient of Variation 13.9 % Platelet Count 275 K/uL Mean Platelet Volume 9.6 fL Prothrombin Time 49.9 SECONDS Prothromb Time International Ratio 4.4 Sodium Level 146 mmol/L Potassium Level 3.2 mmol/L Chloride Level 113 mmol/L Carbon Dioxide Level 27 mmol/L Anion Gap 6.0 mmol/L Blood Urea Nitrogen 6 mg/dl Creatinine 0.77 mg/dl Est Creatinine Clear Calc Drug Dose 46.3 ml/min Estimated GFR () 82.8 Estimated GFR (Non- 71.4 BUN/Creatinine Ratio 7.8 Random Glucose 93 mg/dl Calcium Level 7.8 mg/dl Assessment & Plan ACUTE SIGMOID DIVERTICULITIS: -with prior episodes of diverticulitis -presented this time with abdominal pain, nausea, vomiting, and diarrhea x 10 days -CT abd/pelvis: mild acute sigmoid diverticulitis -no signs of sepsis -did not tolerate PO abx in the ED -on Cipro and Flagyl IV for 2 days, switched to unasyn today due to events overnight -continue with IV fluids, IV PPI, and antiemetics; can d/c IV fluids, switch PPI to PO -stool culture pending, stool for c diff negative -on clear liquid diet-->advanced to full liquids -last colonoscopy in 2009 showed sigmoid diverticulosis -still with some diarrhea, no bleeding -started lactobacillus TIDM HTN: -continue metoprolol, adjust as needed Prior DVT: -on Coumadin, INR 4.4--> 8-->4.4 -no signs of bleeding -continue to hold Coumadin -check INR daily -one dose oral vitamin K given when INR was 8 DVT PROPHYLAXIS: -on Coumadin Current Inpatient Medications: Current Inpatient Medications Medications (Trade) Dose Ordered Sig/Shailesh Route Start Time Stop Time Status Last Admin Dose Admin Ioversol (Optiray 320) 111 ml UD PRN IV 01/21/17 10:45 01/25/17 10:44 Promethazine HCl 12.5 mg/Sodium Chloride 50.5 ml @ 204 mls/hr Q6H PRN IV 01/21/17 16:00 02/20/17 15:59 Acetaminophen (Tylenol Tab) 650 mg Q4H PRN PO 01/21/17 16:15 02/20/17 16:14 Ondansetron HCl (Zofran Inj) 4 mg Q6H PRN IV 01/21/17 16:15 02/20/17 16:14 Dextrose/Sodium Chloride 1,000 ml @ 100 mls/hr Q10H IV 01/21/17 16:15 02/20/17 16:14 01/23/17 18:24 100 MLS/HR Pantoprazole Sodium 40 mg/ Syringe 10 ml @ 5 mls/min DAILY@09,21 IV 01/21/17 19:00 02/20/17 18:59 01/23/17 07:47 5 MLS/MIN Cholecalciferol (Vitamin D Tab) 1,000 inter.unit QAM PO 01/22/17 09:00 02/21/17 08:59 01/23/17 07:41 1,000 INTER.UNIT Metoprolol Tartrate (Lopressor Tab) 25 mg BID PO 01/21/17 21:00 02/20/17 20:59 01/23/17 07:41 25 MG Multivitamins (Multivitamin Tab) 1 tab QAM PO 01/22/17 09:00 02/21/17 08:59 01/23/17 07:41 1 TAB Ascorbic Acid (Vitamin C Tab) 500 mg QAM PO 01/22/17 09:00 02/21/17 08:59 01/23/17 07:41 500 MG Calcium/Vitamin D (Caltrate Plus Tab) 1 tab BID PO 01/21/17 21:00 02/20/17 20:59 01/23/17 07:42 1 TAB Lactobacillus Acidophilus (Floranex Tab) 4 tab TIDM PO 01/23/17 08:00 02/22/17 07:59 01/23/17 16:34 4 TAB Ampicillin Sodium/ Sulbactam Sodium 1500 mg/Sodium Chloride 104 ml @ 200 mls/hr Q6H IV 01/23/17 04:00 02/02/17 06:59 01/23/17 15:44 200 MLS/HR
[2017-01-23 20:53] VITALS: BP 154/73; PULSE 71
[2017-01-23 23:40] VITALS: BP 141/67; PULSE 64; TEMP 36.9; O2SAT 92
[2017-01-24] MEDS: AMPICILLIN/SULBACTAM SOD INJ 1,500 MG in SODIUM CHLORIDE 0.9% 100ML 100 ML IV SCH ×3 (04:35→16:23)
[2017-01-24] MEDS: D5W AND NSS 1,000 ML IV SCH ×2 (04:38→14:47)
[2017-01-24 07:36] VITALS: BP 134/76; PULSE 67; TEMP 37; O2SAT 91
[2017-01-24] MEDS: MULTIVITAMIN TAB PO SCH (08:04)
[2017-01-24] MEDS: CALCIUM 600MG + VIT D 400 IU TAB PO SCH ×2 (08:04→20:03)
[2017-01-24] MEDS: ASCORBIC ACID 500 MG TAB PO SCH (08:04)
[2017-01-24] MEDS: METOPROLOL TARTRATE 25 MG TAB PO SCH ×2 (08:04→20:04)
[2017-01-24] MEDS: LACTOBACILLUS ACIDOPHILUS (FLORANEX) TAB PO SCH ×3 (08:04→16:23)
[2017-01-24] MEDS: PANTOprazole INJ 40 MG in SYRINGE 0 ML IV SCH ×2 (08:11→20:03)
[2017-01-24] MEDS: CHOLECALCIFEROL 1000 INTER.UNIT TAB PO SCH (09:08)
[2017-01-24 09:13] LABS: HEMATOCRIT 37.2 % (37-47); MEAN CELL VOLUME 94.7 fL (80-100); MEAN CORPUSCULAR HEMOGLOBIN 31.8 pg (25-34); MEAN CORPUSCULAR HGB CONC 33.6 g/dl (32-36); MEAN PLATELET VOLUME 9.9 fL (7.4-10.4); PLATELET COUNT 281 K/uL (130-400); RED BLOOD COUNT 3.93 M/uL (4.2-5.4); WHITE BLOOD COUNT 8.37 K/uL (4.8-10.8)
[2017-01-24 09:29] LABS: PROTHROMBIN TIME (PATIENT) 42.1 SECONDS (9.0-12.0)
[2017-01-24 09:33] LABS: BUN/CREATININE RATIO 4.8 (10-20); CALCIUM 7.8 mg/dl (8.5-10.1); CREATININE 0.69 mg/dl (0.60-1.20); POTASSIUM 3.2 mmol/L (3.5-5.1)
[2017-01-24 09:59] LABS: INR 3.7 (0.9-1.1)
[2017-01-24] MEDS ORDERED: POTASSIUM CHLORIDE 10 MEQ TABCR PO ONE (11:00)
[2017-01-24 15:22] VITALS: BP 172/78; PULSE 69; TEMP 36.8; O2SAT 95
[2017-01-24 16:00] VITALS: O2SAT 95
[2017-01-24 16:27] VITALS: BP 169/72; PULSE 69; O2SAT 95
--- NOTE | 2017-01-24 19:05 | Progress Note ---
Medicine Progress Note Date & Time of Visit: Jan 24, 2017 at 19:05. Subjective Patient is doing better but she still has some watery diarrhea. She denies any abdominal pain or cramping. She is tolerating a regular diet now. No overnight events noted. at the bedside was updated. Objective Last 8 Hrs Date Time Temp Pulse Resp B/P (MAP) Pulse Ox O2 Delivery O2 Flow Rate FiO2 01/24/17 16:27 69 169/72 (104) 95 01/24/17 16:00 95 Room Air 01/24/17 15:22 36.8 69 20 172/78 (109) 95 Room Air Physical Exam: GENERAL: Patient is in no acute distress. HEENT: No acute trauma, normocephalic, mucous membranes moist, no nasal congestion, no scleral icterus. NECK: No stridor, trachea is midline. LUNGS: Clear to auscultation bilaterally, no wheeze, no rhonchi, breath sounds equal. HEART: Without murmurs gallops or rubs, regular rate and rhythm. ABDOMEN: Soft, nontender, bowel sounds positive EXTREMITIES: No cyanosis or edema NEUROLOGIC: Oriented x 3, no acute motor or sensory deficits, no focal weakness. SKIN: No rash, no jaundice, no diaphoresis. Laboratory Results: Last 24 Hours Test 01/24/17 09:01 White Blood Count 8.37 K/uL Red Blood Count 3.93 M/uL Hemoglobin 12.5 g/dL Hematocrit 37.2 % Mean Corpuscular Volume 94.7 fL Mean Corpuscular Hemoglobin 31.8 pg Mean Corpuscular Hemoglobin Concent 33.6 g/dl RDW Standard Deviation 47.6 fL RDW Coefficient of Variation 13.7 % Platelet Count 281 K/uL Mean Platelet Volume 9.9 fL Prothrombin Time 42.1 SECONDS Prothromb Time International Ratio 3.7 Sodium Level 144 mmol/L Potassium Level 3.2 mmol/L Chloride Level 109 mmol/L Carbon Dioxide Level 26 mmol/L Anion Gap 9.0 mmol/L Blood Urea Nitrogen 3 mg/dl Creatinine 0.69 mg/dl Est Creatinine Clear Calc Drug Dose 51.7 ml/min Estimated GFR () 93.3 Estimated GFR (Non- 80.5 BUN/Creatinine Ratio 4.8 Random Glucose 95 mg/dl Calcium Level 7.8 mg/dl Assessment & Plan ACUTE SIGMOID DIVERTICULITIS: -with prior episodes of diverticulitis -presented this time with abdominal pain, nausea, vomiting, and diarrhea x 10 days -CT abd/pelvis: mild acute sigmoid diverticulitis -no signs of sepsis -did not tolerate PO abx in the ED -on Cipro and Flagyl IV for 2 days, switched to unasyn due to flushing while getting cipro infusion, patient reports N/V with augmentin so will try augmentin suspension here with food and see if the patient tolerates it. -continue with IV fluids, IV PPI, and antiemetics; can d/c IV fluids, switch PPI to PO -stool culture pending, stool for c diff negative -on clear liquid diet-->advanced to full liquids -last colonoscopy in 2009 showed sigmoid diverticulosis -still with some diarrhea, no bleeding -started lactobacillus TIDM HTN: -continue metoprolol, adjust as needed Prior DVT: -on Coumadin, INR 4.4--> 8-->4.4-->3.7 -no signs of bleeding -continue to hold Coumadin -check INR daily -one dose oral vitamin K given when INR was 8 DVT PROPHYLAXIS: -on Coumadin Current Inpatient Medications: Current Inpatient Medications Medications (Trade) Dose Ordered Sig/Shailesh Route Start Time Stop Time Status Last Admin Dose Admin Ioversol (Optiray 320) 111 ml UD PRN IV 01/21/17 10:45 01/25/17 10:44 Promethazine HCl 12.5 mg/Sodium Chloride 50.5 ml @ 204 mls/hr Q6H PRN IV 01/21/17 16:00 02/20/17 15:59 Acetaminophen (Tylenol Tab) 650 mg Q4H PRN PO 01/21/17 16:15 02/20/17 16:14 Ondansetron HCl (Zofran Inj) 4 mg Q6H PRN IV 01/21/17 16:15 02/20/17 16:14 Dextrose/Sodium Chloride 1,000 ml @ 100 mls/hr Q10H IV 01/21/17 16:15 02/20/17 16:14 01/24/17 14:47 100 MLS/HR Pantoprazole Sodium 40 mg/ Syringe 10 ml @ 5 mls/min DAILY@,21 IV 01/21/17 19:00 01/24/17 23:59 01/24/17 08:11 5 MLS/MIN Cholecalciferol (Vitamin D Tab) 1,000 inter.unit QAM PO 01/22/17 09:00 02/21/17 08:59 01/24/17 09:08 1,000 INTER.UNIT Metoprolol Tartrate (Lopressor Tab) 25 mg BID PO 01/21/17 21:00 02/20/17 20:59 01/24/17 08:04 25 MG Multivitamins (Multivitamin Tab) 1 tab QAM PO 01/22/17 09:00 02/21/17 08:59 01/24/17 08:04 1 TAB Ascorbic Acid (Vitamin C Tab) 500 mg QAM PO 01/22/17 09:00 02/21/17 08:59 01/24/17 08:04 500 MG Calcium/Vitamin D (Caltrate Plus Tab) 1 tab BID PO 01/21/17 21:00 02/20/17 20:59 01/24/17 08:04 1 TAB Lactobacillus Acidophilus (Floranex Tab) 4 tab TIDM PO 01/23/17 08:00 02/22/17 07:59 01/24/17 16:23 4 TAB Ampicillin Sodium/ Sulbactam Sodium 1500 mg/Sodium Chloride 104 ml @ 200 mls/hr Q6H IV 01/23/17 04:00 01/24/17 21:59 01/24/17 16:23 200 MLS/HR Pantoprazole Sodium (Protonix Tab) 40 mg BID PO 01/25/17 09:00 02/20/17 23:59 Amoxicillin/ Clavulanate Potassium (Augmentin Susp) 10.9 ml BID PO 01/24/17 21:00 02/03/17 20:59
[2017-01-24] MEDS: AMOXICILLIN/CLAVULANATE SUSP 400 MG/5 ML PO SCH (20:03)
[2017-01-24] MEDS ORDERED: AMOXICILLIN/CLAVULANATE SUSP 400 MG/5 ML PO SCH (21:00)
[2017-01-25 00:13] VITALS: BP 182/91; PULSE 65; TEMP 36.8; O2SAT 95
[2017-01-25] MEDS: D5W AND NSS 1,000 ML IV SCH ×2 (00:29→09:57)
[2017-01-25 01:00] VITALS: BP 160/77; PULSE 64
[2017-01-25 07:30] VITALS: O2SAT 95
[2017-01-25 07:40] VITALS: BP 176/79; PULSE 70; TEMP 36.9; O2SAT 95
[2017-01-25 08:06] LABS: INR 2.6 (0.9-1.1); PROTHROMBIN TIME (PATIENT) 29.5 SECONDS (9.0-12.0)
[2017-01-25] MEDS: LACTOBACILLUS ACIDOPHILUS (FLORANEX) TAB PO SCH ×3 (08:23→16:43)
[2017-01-25] MEDS: MULTIVITAMIN TAB PO SCH (08:24)
[2017-01-25] MEDS: ASCORBIC ACID 500 MG TAB PO SCH (08:24)
[2017-01-25] MEDS: CHOLECALCIFEROL 1000 INTER.UNIT TAB PO SCH (08:24)
[2017-01-25] MEDS: CALCIUM 600MG + VIT D 400 IU TAB PO SCH (08:25)
[2017-01-25] MEDS: METOPROLOL TARTRATE 25 MG TAB PO SCH (08:25)
[2017-01-25] MEDS: AMOXICILLIN/CLAVULANATE SUSP 400 MG/5 ML PO SCH (08:29)
[2017-01-25] MEDS ORDERED: PANTOprazole SOD 40 MG TAB PO SCH (09:00)
[2017-01-25 11:50] VITALS: BP 176/79; PULSE 70; TEMP 36.9; O2SAT 95
[2017-01-25] MEDS ORDERED: POTASSIUM CHLORIDE 10 MEQ TABCR PO ONE (15:30)
[2017-01-25 15:49] VITALS: BP 164/83; PULSE 64; TEMP 36.7; O2SAT 93
--- NOTE | 2017-01-25 16:44 | Discharge Instructions ---
Discharge Instructions Date of Service Jan 25, 2017. Admission Reason for Admission: Diverticulitis Discharge Discharge Diagnosis / Problem: ACUTE DIVERTICULITS Discharge Goals Goal(s): Decrease discomfort, Improve disease control Activity Recommendations Activity Limitations: resume your previous activity . Instructions / Follow-Up Instructions / Follow-Up HOSPITAL FOLLOW UP WITH DR MARTÍNEZ ON TuesdayJanuary @ 1:05 PM LAB WORK PT/INR ON 01/28/17 Current Hospital Diet Patient's current hospital diet: Low Fiber Diet Discharge Diet Recommended Diet: Low Fiber Diet Pending Studies Studies pending at discharge: yes List of pending studies: PT/INR ON 01/28/17 Medical Emergencies . Who to Call and When: Medical Emergencies: If at any time you feel your situation is an emergency, please call 911 immediately. . Non-Emergent Contact Non-Emergency issues call your: Primary Care Provider . . "Provider Documentation" section prepared by Mirian Willard. . VTE Core Measure Inpt VTE Proph given/why not?: Warfarin (Coumadin)
[2017-01-25] MEDS ORDERED: AMOX400S2 PO (16:49)
--- NOTE | 2017-01-25 17:10 | Progress Note ---
Internal Med Progress Note Date of Service: Jan 25, 2017. Provider Documentation: SUBJECTIVE: no complain of abdominal pain no nausea tolerating diet well present at bedside pt is eager to be discharged home OBJECTIVE: Vital Signs-as noted below Exam: General-no sign of distress Eyes-sclera non icteric ENT-NAD Neck-no JVD Lungs-CTA Heart-regular S1/S2 Abdomen-soft, non tender Extremities-no lower ext edema Neuro-AAO x3, no focal deficit Lab data as noted below. ASSESSMENT & PLAN: ACUTE SIGMOID DIVERTICULITIS: -with prior episodes of diverticulitis -presented this time with abdominal pain, nausea, vomiting, and diarrhea x 10 days -CT abd/pelvis: mild acute sigmoid diverticulitis -no signs of sepsis; symptom improved , no complain of pain , discomfort no nausea -last colonoscopy in 2009 showed sigmoid diverticulosis -diarrhea has resolved on PO Augmentin suspension ( was unable to tolerate other Oral agents ) -will be discharged home with oral suspension -complete total 10 days course HTN: -continue metoprolol, Prior DVT: -on Coumadin was coagulopathic INR was elevated >4.4--> 8 PO vit K given -no signs of bleeding - Coumadin was on hold INR 2.6 today can be discharged home will prior dose of Coumadin repeat INR on 01/28/17 DVT PROPHYLAXIS: -on Coumadin DISPOSITION discharge home today Vital Signs: Date Time Temp Pulse Resp B/P (MAP) Pulse Ox O2 Delivery O2 Flow Rate FiO2 01/25/17 15:49 36.7 64 18 164/83 (110) 93 Room Air 01/25/17 11:50 36.9 70 16 95 Room Air 01/25/17 07:40 36.9 70 16 176/79 (111) 95 Room Air 01/25/17 07:30 95 Room Air 01/25/17 01:00 64 160/77 (104) 01/25/17 00:15 Room Air 01/25/17 00:13 36.8 65 22 182/91 (121) 95 Room Air Lab Results: Results Past 24 Hours Test 01/25/17 07:43 Range/Units Prothrombin Time 29.5 9.0-12.0 SECONDS Prothromb Time International Ratio 2.6 0.9-1.1
--- NOTE | 2017-01-25 17:11 | Discharge Summary ---
Discharge Summary Date of Service Jan 25, 2017. Discharge Summary Admission Date: Jan 21, 2017 at 16:10 Discharge Date: Jan 25, 2017 Discharge Disposition: Home Principal Diagnosis: ACUTE DIVERTICULITIS Procedures: CT ABDOMEN /PELVIS : IMPRESSION: 1. Mild acute sigmoid diverticulitis superimposed upon chronic diverticular change. 2. Reactive ileus versus nonspecific enteritis with a secondary small bowel ileus. 3. Multiple hepatic cysts. 5. Nonobstructing right renal calcification. 6. Minimal interstitial change right base. Medication Reconciliation New Medications: Amoxicillin & Pot Clavulanate (Amoxicillin/Clavulanate P) 1 Yokasta Yokasta 10.9 ML PO BID for 6 Days, #131 ML Continued Medications: Ascorbic Acid (Vitamin C) 500 Mg Cap 500 MG PO QAM Calcium (Caltrate) 600 Mg Tab 600 MG PO BID, 0 Refills Calcium Carbonate (Tums) 500 Mg Chew 500 MG PO DIRECTED Cholecalciferol (Vitamin D3) 1,000 Unit Tab 1 TAB PO QAM for 90 Days, #90 TAB 3 Refills Metoprolol Tartrate (Lopressor) 25 Mg Tab 25 MG PO BID for 60 Days Multivitamin (Multivitamin) Tab 1 TAB PO QAM, 0 Refills Ranitidine (Zantac) 150 Mg Tab 150 MG PO BID, TAB Triamcinolone Acetonide (Topic (Triamcinolone Acet 0.025%) 0.025 % Lot 1 DOSE TOP PRN Warfarin Sod (Coumadin) 2.5 Mg Tab 2.5 MG PO 5XWK TAKE 2.5MG EVERYDAY EXCEPT TUESDAY AND TUESDAY Warfarin Sod (Coumadin) 5 Mg Tab 5 MG PO 2XWK TAKE 5MG TUESDAY AND TUESDAY Admission Information HPI (per Admitting provider): 81 year old female who presents to the ER with abdominal pain, nausea, vomiting , and diarrhea. Patient reports she has been sick for the past 10 days. She reports abdominal pain was initially in the epigastric region and then became more generalized. She reports multiple episodes of vomiting and diarrhea. She denies hematemesis, coffee ground emesis, BRBPR, or dark tarry stools. She denies fever and chills. No lightheadedness, dizziness, diaphoresis, or syncopal events. She denies chest pain and shortness of breath. No urinary symptoms. In the ER, patient is having poor PO tolerance. She had a few episodes of vomiting during my exam. Emesis was bilious in nature with some undigested food. CT abd/eplvis is showing mild acute sigmoid diverticulitis. She was given Augmentin however had vomiting after. She was then given IV Cipro and Flagyl. She was also treated with IVF, Imodium, and Zofran. Vitals are stable. Physical Exam (per Admitting): General Appearance: + mild distress (vomiting during exam) Head: normocephalic Eyes: normal inspection ENT: hearing grossly normal Neck: supple, no JVD Respiratory/Chest: lungs clear, normal breath sounds, no respiratory distress Cardiovascular: regular rate, rhythm, no edema, normal peripheral pulses Abdomen/GI: normal bowel sounds, soft, + tenderness (generalized, more pronounced in epigastric area) Extremities/Musculoskelatal: normal inspection, no calf tenderness Neurologic/Psych: no motor/sensory deficits, alert, normal mood/affect, oriented x 3 Skin: normal color, warm/dry Hospital Course ACUTE SIGMOID DIVERTICULITIS: -with prior episodes of diverticulitis -presented this time with abdominal pain, nausea, vomiting, and diarrhea x 10 days -CT abd/pelvis: mild acute sigmoid diverticulitis -no signs of sepsis; symptom improved , no complain of pain , discomfort no nausea -last colonoscopy in 2009 showed sigmoid diverticulosis -diarrhea has resolved on PO Augmentin suspension ( was unable to tolerate other Oral agents ) -will be discharged home with oral suspension -complete total 10 days course HTN: -continue metoprolol, Prior DVT: -on Coumadin was coagulopathic INR was elevated >4.4--> 8 PO vit K given -no signs of bleeding - Coumadin was on hold INR 2.6 today can be discharged home will prior dose of Coumadin repeat INR on 01/28/17 DVT PROPHYLAXIS: -on Coumadin DISPOSITION discharge home today Total time spent on discharge = This includes examination of the patient, discharge planning, medication reconciliation, and communication with other providers. Discharge Instructions Discharge Instructions Date of Service Jan 25, 2017. Admission Reason for Admission: Diverticulitis Discharge Discharge Diagnosis / Problem: ACUTE DIVERTICULITIS Discharge Goals Goal(s): Decrease discomfort, Improve disease control Activity Recommendations Activity Limitations: resume your previous activity . Instructions / Follow-Up Instructions / Follow-Up HOSPITAL FOLLOW UP WITH DR MARTÍNEZ ON TuesdayJanuary @ 1:05 PM LAB WORK PT/INR ON 01/28/17 Current Hospital Diet Patient's current hospital diet: Low Fiber Diet Discharge Diet Recommended Diet: Low Fiber Diet Pending Studies Studies pending at discharge: yes List of pending studies: PT/INR ON 01/28/17 Medical Emergencies . Who to Call and When: Medical Emergencies: If at any time you feel your situation is an emergency, please call 911 immediately. . Non-Emergent Contact Non-Emergency issues call your: Primary Care Provider . . "Provider Documentation" section prepared by Mirian Willard. . VTE Core Measure Inpt VTE Proph given/why not?: Warfarin (Coumadin) Additional Copies To Moustapha Martínez D.O.
[2017-01-25] MEDS ORDERED: AMOXICILLIN/CLAVULANATE SUSP 400 MG/5 ML PO SCH ×2 (21:00)
== END 2017-01-25 17:45 | disposition home or self-care (01) | DRG 392 ==
LOC: C.EDB 10:08 → C.MS2W 16:10 → CANRESERV 16:55 → ENRESERV 16:55
PROVIDERS: ADMIT Internal Medicine; ATTEND Hospitalist
DX: K57.32 Diverticulitis of large intestine without perforation or abscess without bleeding (principal); I10 Essential (primary) hypertension; Z51.81 Encounter for therapeutic drug level monitoring; Z79.899 Other long term (current) drug therapy; Z79.01 Long term (current) use of anticoagulants; Z66 Do not resuscitate; Z87.19 Personal history of other diseases of the digestive system; Z86.718 Personal history of other venous thrombosis and embolism

== ENCOUNTER → 2017-01-28 | Outpatient (CLI) | payer BC, OTHER ==
[~2017-01-28] MED LIST changes: -ACET-1257 PO; -ALBUAER19 INH; +AMOX400S2 PO; +CALC500C3 PO; +ZNTT/150 PO
[2017-01-28 16:49] LABS: MEAN CELL VOLUME 92.8 fL (80-100); MEAN CORPUSCULAR HEMOGLOBIN 29.6 pg (25-34); MEAN CORPUSCULAR HGB CONC 31.9 g/dl (32-36); PLATELET COUNT 368 K/uL (130-400); RED BLOOD COUNT 3.88 M/uL (4.2-5.4); WHITE BLOOD COUNT 7.04 K/uL (4.8-10.8)
[2017-01-28 17:01] LABS: BLOOD UREA NITROGEN 9 mg/dl (7-18); BUN/CREATININE RATIO 14.5 (10-20); CALCIUM 8.7 mg/dl (8.5-10.1); CARBON DIOXIDE 27 mmol/L (21-32); CHLORIDE 108 mmol/L (98-107); GLUCOSE 90 mg/dl (70-99); POTASSIUM 3.6 mmol/L (3.5-5.1); SODIUM 143 mmol/L (136-145)
== END | disposition home or self-care (01) ==
LOC: C.LABBC 15:11
PROVIDERS: ATTEND Family Medicine
DX: I10 Essential (primary) hypertension (principal); K57.32 Diverticulitis of large intestine without perforation or abscess without bleeding

== ENCOUNTER → 2018-02-01 | Outpatient (CLI) | payer BC ==
[~2018-02-01] MED LIST changes: +RANI150T85 PO; -ZNTT/150 PO
[2018-02-01 13:20] LABS: BLOOD UREA NITROGEN 19 mg/dl (7-18); CARBON DIOXIDE 29 mmol/L (21-32); CREATININE 0.78 mg/dl (0.60-1.20); GLUCOSE 85 mg/dl (70-99); POTASSIUM 4.2 mmol/L (3.5-5.1); SODIUM 142 mmol/L (136-145)
== END | disposition home or self-care (01) ==
LOC: C.LABBC 11:22
PROVIDERS: ATTEND Family Medicine
DX: I10 Essential (primary) hypertension (principal)